=== PATIENT | female | born 1995 | race Two or more races ===

== ENCOUNTER 2022-02-25 19:27 | Emergency (ER) | payer OTHER ==
[~2022-02-25] VITALS: Ht 147.3 cm; Wt 61.2 kg
== END 2022-02-25 23:26 | disposition home or self-care (01) ==
LOC: ER 19:27
DX: O20.9 Hemorrhage in early pregnancy, unspecified (principal); Z3A.01 Less than 8 weeks gestation of pregnancy

== ENCOUNTER 2022-10-17 01:12 | Inpatient (IN) | payer OTHER ==
[~2022-10-17] VITALS: Ht 147.3 cm; Wt 2.7 kg
[2022-10-17] MEDS ORDERED: PRENATAL TABLE1 EAC4 PO (02:31)
[2022-10-20] MEDS ORDERED: IBUPROFEN800 MG PO (07:49)
== END 2022-10-20 11:57 | disposition home or self-care (01) | DRG 786 ==
LOC: OB/GYN 01:12 → LDR 01:12 → O/R 18:55 → OB/GYN 19:29
PROVIDERS: ADMIT Specialist; ATTEND Specialist
PROC: 4A1HXCZ Monitoring of Products of Conception, Cardiac Rate, External Approach (ICD-10-PCS; 2022-10-17)
PROC: 10D00Z1 Extraction of Products of Conception, Low, Open Approach (ICD-10-PCS; principal; 2022-10-17 18:15)
DX: O33.1 Maternal care for disproportion due to generally contracted pelvis (principal); K83.1 Obstruction of bile duct; O26.62 Liver and biliary tract disorders in childbirth; Z3A.39 39 weeks gestation of pregnancy; Z37.0 Single live birth; Z20.822 Contact with and (suspected) exposure to COVID-19

== ENCOUNTER 2022-12-24 17:17 | Emergency (ER) | payer OTHER ==
[~2022-12-24] VITALS: Ht 147.3 cm; Wt 55.3 kg
[~2022-12-24 17:17] MED LIST: IBUPROFEN800 MG PO; PRENATAL TABLE1 EAC4 PO
== END 2022-12-24 19:44 | disposition home or self-care (01) ==
LOC: ER 17:17
DX: R53.1 Weakness (principal)